=== PATIENT | female | born 1980 | race Caucasian/White ===

== ENCOUNTER → 2017-12-14 | Outpatient (CLI) | payer OTHER ==
[~2017-12-14] MED LIST: BENTYL 10 MG CA10 M1 PO; OMEPRAZOLE20 MG PO; PREDNISONE50 MG PO; PROAIR HFA8.5 GM INH; SPACE CHAMBER1 EACH INH; TRAMADOL 50 MG50 MG PO
== END ==
LOC: M.CT 11-03 16:00
DX: R07.9 Chest pain, unspecified (principal)

== ENCOUNTER 2018-07-21 08:20 | Emergency (ER) | payer OTHER ==
[~2018-07-21] VITALS: Ht 160 cm; Wt 72.6 kg
[~2018-07-21 08:20] MED LIST changes: -BENTYL 10 MG CA10 M1 PO; -OMEPRAZOLE20 MG PO; -TRAMADOL 50 MG50 MG PO
[2018-07-21] MEDS ORDERED: OMEPRAZOLE20 MG PO (08:32)
[2018-07-21] MEDS ORDERED: TRAMADOL 50 MG50 MG PO (08:32)
[2018-07-21] MEDS ORDERED: BENTYL 10 MG CA10 M1 PO (08:32)
[2018-07-21 08:48] LABS: ABSOLUTE BASOPHILS 0.1 thou/uL (0.0-0.2); ABSOLUTE EOSINOPHILS 0.3 thou/uL (0.0-0.7); ABSOLUTE LYMPHOCYTES 1.6 thou/uL (0.8-5.3); ABSOLUTE MONOCYTES 0.5 thou/uL (0.0-1.2); ABSOLUTE NEUTROPHILS 3.6 thou/uL (1.6-8.1); EOSINOPHILS 4.8 %; HEMATOCRIT 44.3 % (37.0-47.0); LYMPHOCYTES 26.8 %; MCHC 33.8 g/dL (28.0-37.0); MCV 94.6 fL (80.0-100.0); MONOCYTES 7.8 %; MPV 8.2 fl. (7.2-11.1); NUCLEATED RBCS 0 /100WBC; PLATELET COUNT* 298 thou/uL (150-400); POLYS 59.6 %; RBC 4.69 mil/uL (4.20-5.00); RDW-CV 12.2 % (10.5-14.5); WBC 6.1 thou/uL (4.0-11.0)
[2018-07-21 08:49] LABS: URINE BILIRUBIN NEGATIVE (Negative); URINE BLOOD NEGATIVE (Negative); URINE CLARITY CLEAR; URINE COLOR YELLOW; URINE GLUCOSE-RANDOM NEGATIVE (Negative); URINE KETONES NEGATIVE (Negative); URINE LEUKOCYTES-REFLEX NEGATIVE (Negative); URINE NITRITE-REFLEX NEGATIVE (Negative); URINE PROTEIN NEGATIVE (Negative); URINE SPECIFIC GRAVITY 1.015 (1.005-1.030); URINE UROBILINOGEN 0.2 E.U./dl (0.2-1.0)
[2018-07-21 08:50] LABS: CALCIUM 8.7 mg/dL (8.5-10.1); CREATININE 0.7 mg/dL (0.6-1.3); POTASSIUM 3.7 mmol/L (3.5-5.1)
[2018-07-21 08:53] LABS: ALBUMIN 3.5 g/dL (3.4-5.0); TOTAL BILIRUBIN 0.3 mg/dL (<0.1-1.0); TOTAL PROTEIN 7.4 g/dL (6.4-8.2)
[2018-07-21 09:14] VITALS: BP 142/77
== END 2018-07-21 09:15 | disposition home or self-care (01) ==
LOC: M.ERS 08:20
PROVIDERS: Family Medicine
DX: R10.31 Right lower quadrant pain (principal); I10 Essential (primary) hypertension; Z88.2 Allergy status to sulfonamides; Z88.6 Allergy status to analgesic agent

== ENCOUNTER → 2021-11-10 | Outpatient (CLI) | payer OTHER ==
[~2021-11-10] MED LIST changes: +BENTYL 10 MG CA10 M1 PO; +OMEPRAZOLE20 MG PO; +TRAMADOL 50 MG50 MG PO
== END ==
LOC: M.RAD 11:45
PROVIDERS: ATTEND Family Medicine
DX: Z12.31 Encounter for screening mammogram for malignant neoplasm of breast (principal)